=== PATIENT | male | born 1955 | race Caucasian/White ===

== ENCOUNTER 2018-11-11 14:01 | Observation (INO) | payer SELFPAY ==
[2018-11-11 15:49] LABS: Troponin I Less than 0.010 ng/mL (< 0.028)
[2018-11-11] MEDS ORDERED: Acetaminophen 325 MG TAB PO PRN (16:52)
[2018-11-11] MEDS ORDERED: Dextrose 50% Abboject 50 ML SYRINGE SLOW IVP PRN (17:18)
[2018-11-11] MEDS ORDERED: HumaLOG 300 UNITS/3 ML VIAL SC PRN ×2 (17:18→20:36)
[2018-11-11] MEDS ORDERED: Dextrose 5% in Water 1,000 ML IV PRN (17:18)
[2018-11-11 18:17] VITALS: BMI 25.6
[2018-11-11 19:38] LABS: Troponin I Less than 0.010 ng/mL (< 0.028)
[2018-11-11] MEDS ORDERED: Melatonin 3 MG TAB PO PRN (20:36)
[2018-11-11] MEDS ORDERED: Atorvastatin Calcium 10 MG TAB PO SCH (21:00)
[2018-11-11] MEDS ORDERED: Gabapentin 300 MG CAP PO SCH (21:00)
[2018-11-11] MEDS: metFORMIN 500 MG TAB PO SCH (21:31)
[2018-11-11] MEDS: Metoprolol Tartrate 25 MG TAB PO SCH (21:32)
[2018-11-11 21:47] LABS: Troponin I Less than 0.010 ng/mL (< 0.028)
[2018-11-11] MEDS ORDERED: Lisinopril/Hydrochlorothiazide 10 mg/12.5 mg Tablet PO SCH (22:45)
--- NOTE | 2018-11-12 00:42 | HP ---
CHIEF COMPLAINT: Near syncope. HISTORY OF PRESENT ILLNESS: This patient is a 63-year-old male who initially presented to the [facility]. The patient reports that couple days ago, he was working on his car and his washing machine broke, so he tried to fix that and while he was walking toward his well, he became lightheaded. He says he already fell to the ground. He says he rolled around a couple of times and was able to get back up. His says he was confused and did not know where he was. The patient reports that he never actually lost consciousness. He became very diaphoretic with this event, but he absolutely denies any chest pain or shortness of breath. He subsequently had his check his blood sugar and it was in the 160s. He reports since that time he has had a little bit of lightheadedness and mild headache, tilt of a little bit. Currently the patient denies any pain and no significant symptoms. The patient reports that functionally he is very active. 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 REVIEW OF SYSTEMS: All other systems reviewed and were negative. The patient does report history of a left inguinal hernia, but asymptomatic. PAST MEDICAL HISTORY: The patient has a history of colon cancer with resection. He states that he had an 8 pounds tumor removed from what sounds like the distal colon. He subsequently developed the inguinal hernia and was told he should have it addressed at some point, but never has and it has just gotten bigger. He has diabetes mellitus, hypertension, hyperlipidemia. He does follow with Dr. Ramirez and sees him every 3 months. PAST SURGICAL HISTORY: Colon resection for colon cancer. FAMILY HISTORY: Father at 88 in his sleep. He thinks he may have had some heart problems, but not until older age and does not believe he actually had a heart attack. Mother at 90. He has a brother who is morbidly obese, but has no cardiac issues. SOCIAL HISTORY: The patient smokes 10-15 cigarettes per day, started in the 90s. He says he used to drink a lot of beer 15-20 years ago, now he only drinks 1-2 per day. He denies drugs. He is , but common-law. He is full code and his would be his surrogate decision maker. ALLERGIES: NONE. CURRENT MEDICATIONS: 1. Metformin 1000 mg b.i.d. 2. Gabapentin 300 mg two p.o. daily. 3. Jardiance 10 mg daily. 4. Lipitor 10 mg daily. 5. Aspirin 81 mg daily. 6. NovoLog FlexPen 10 units subcu t.i.d. 7. Lisinopril/HCTZ 20/12.5 one p.o. b.i.d. 8. Metoprolol 25 mg b.i.d. PHYSICAL EXAMINATION: VITAL SIGNS: Blood pressure 160/72, pulse 59, respirations 22, O2 saturation 96 % on room air. GENERAL APPEARANCE: Age-appropriate male, in no distress. He is awake, alert, oriented, pleasant, and cooperative. HEENT: PERRL, no OP lesions. He has poor dentition with most of his teeth essentially worn down to flat brown nubs. NECK: Supple and symmetric. HEART: Regular rate and rhythm without murmurs. LUNGS: Clear to auscultation bilaterally with good chest wall expansion and air exchange. ABDOMEN: Soft, nontender, and nondistended. Positive bowel sounds. No masses. No organomegaly. Large left direct hernia without pain or incarceration. EXTREMITIES: No cyanosis, clubbing, or edema. LABORATORY DATA: White count 8.4, hemoglobin 17.4, platelets are 199. INR 1.0. Sodium 138, potassium 4.2, chloride 102, CO2 22, BUN 23, creatinine 0.83, glucose 132, calcium 10.0, AST 15, ALT 14. CK is 56, troponin is less than 0.01. Albumin 4.5. TSH 1.28. IMAGIN. Chest x-ray is clear. 2. Head CT, normal. 3. EKG rather shows some anterior early precordial lead ST-segment abnormality consistent with possible Wellens waves. HOSPITAL COURSE: The patient received aspirin at the outlying facility prior to transfer here. IMPRESSION AND PLAN: 1. Near syncopal episode. The patient denies actual loss of consciousness, He has multiple risk factors for atherosclerosis including hypertension, diabetes, hyperlipidemia, and smoking. We will keep him on telemetry. Continue to check serial troponins and obtain a cardiology consult. We will get an echocardiogram and also carotid Dopplers. The patient probably needs investigation of his coronary vasculature. Unclear, if he should go to stress test or given the EKG abnormalities and risk factor straight to heart catheterization, although he denies any true chest pain per se. We will consult Cardiology for assistance in that decision making process. 2. Diabetes mellitus. We will continue with his metformin. We will not be able to provide the Jardiance here, but we will continue with Accu-Cheks and sliding scale insulin otherwise. 3. Hyperlipidemia. Continue Lipitor. 4. Hypertension. Continue with the lisinopril/HCTZ and the metoprolol. 5. Left inguinal hernia. This is chronic and not a pressing issue. May need to be addressed, but only after the cardiac status is determined. 6. Abnormal EKG. As above. Job ID: [id number] MTDD
--- NOTE | 2018-11-12 07:40 | ULT ---
US Carotid Doppler STANDARD History: [Syncope] Comparison: None. Findings: Real-time grayscale, color, and spectral analysis of the extracranial carotid and vertebral arteries was performed. Moderate atherosclerotic plaque in both carotid bulbs. Antegrade flow both vertebral arteries. No jethro vated peak systolic velocities within the internal carotid arteries. Impression: No hemodynamically significant stenosis.
[2018-11-12 08:35] VITALS: BP 156/79; TEMP 98
[2018-11-12] MEDS ORDERED: Gabapentin 300 MG CAP PO SCH (09:00)
[2018-11-12] MEDS ORDERED: Aspirin 81 mg Enteric Coated Tablet PO SCH (09:00)
[2018-11-12] MEDS ORDERED: Lisinopril/Hydrochlorothiazide 20 mg/12.5 mg Tablet PO SCH (09:00)
[2018-11-12] MEDS: metFORMIN 500 MG TAB PO SCH (09:19)
[2018-11-12] MEDS: Metoprolol Tartrate 25 MG TAB PO SCH (09:20)
--- NOTE | 2018-11-12 13:42 | DIS ---
DATE OF ADMISSION: 11/11/2018 DATE OF DISCHARGE: 11/12/2018 DISCHARGE DIAGNOSES: 1. Near syncopal episode. 2. Abnormal EKG with Wellens waves. 3. Diabetes mellitus. 4. Hypertension. 5. Hyperlipidemia. 6. Tobacco abuse. 7. Left inguinal hernia. 8. History of colon cancer. HISTORY OF PRESENT ILLNESS: This patient is a 63-year-old male with history of chronic diabetes, hypertension, hyperlipidemia, and tobacco abuse, who had an episode of near syncope couple of days prior to his admission to the hospital. He reported that he never lost consciousness, but simply he was walking, became lightheaded, went to the ground, rolled around couple of times and was able to get back up. He became diaphoretic and a little confused, but then fully recovered. His blood sugar at that time was normal. He reported that he continued to feel a little sore and lightheaded subsequent and ultimately acquiesced to coming to the Emergency Department. He was originally seen in the Emergency Department in [place]. There, his workup primarily revealed an abnormality on his EKG consistent with Wellens waves primarily noticed in the V1, II, and III. He was transferred to this facility, where repeat confirmed similar findings. The patient completely denied any chest pain or shortness of breath. In fact, he remained quite physically active and at no point, does he experience chest pain or shortness of breath. HOSPITAL COURSE: The patient was placed in observation on telemetry. He had no evidence of arrhythmia. He had negative troponins. His blood sugars remain 168 to 227. The patient had carotid Dopplers, echocardiogram, and Cardiology consult ordered. Carotid Dopplers were obtained and showed no evidence of occlusive disease. The patient; however, decided that he wanted to leave. He had full explanation regarding the concern for the EKG findings. The possibility that he could have proximal coronary artery disease and could suffer a massive heart attack including sudden . He fully understands these things, but believes the fact that he stays active and has no symptoms and medicates against him having any problems. I explained thoroughly that those things do not negate the risk and he needs to have a heart catheterization in order to fully evaluate his coronary anatomy. The patient understands by leaving a risk of a heart attack or . His encouraged him to consider staying, but at this time, the patient wishes to leave against medical advice. Exam: VSS Heart RRR, no MGR Lungs CTAB Abd: Soft, NT, ND, +BS Ext: No CCE. FOLLOWUP: He is encouraged to follow up with his primary care physician or to follow up with Cardiology to consider having outpatient heart catheterization. He indicates that he might consider that at some time in the future. DISPOSITION: The patient is discharged against medical advice. His prognosis is still a bit guarded given his clinical scenario. He will resume his usual home medications and again encouraged to follow up with his PCP soon. He has appointment in 2 weeks. I encouraged him to go sooner. He will continue his diabetic heart healthy diet and his activity is up to him. Job ID: [id number] [facility]
== END 2018-11-12 10:30 | disposition left against medical advice (07) ==
LOC: ERS 14:01 → 2SW 15:50
PROVIDERS: ADMIT Internal Medicine; ATTEND Internal Medicine
DX: R55 Syncope and collapse (principal); K40.90 Unilateral inguinal hernia, without obstruction or gangrene, not specified as recurrent; E11.9 Type 2 diabetes mellitus without complications; I10 Essential (primary) hypertension; E78.5 Hyperlipidemia, unspecified; F17.210 Nicotine dependence, cigarettes, uncomplicated; Z79.4 Long term (current) use of insulin; Z79.899 Other long term (current) drug therapy; Z85.038 Personal history of other malignant neoplasm of large intestine; Z90.49 Acquired absence of other specified parts of digestive tract
CPT/HCPCS: 36415; 36416; 93005; 93306; 93880; G0378

== ENCOUNTER 2020-09-22 12:45 | Inpatient (IN) | payer MEDICARE ==
[2020-10-06 16:10] LABS: Hemoglobin 16.5 g/dL (13.5-17.5); Mean Corpuscular HGB CONC 34.4 g/dL (32.0-36.0); Mean Corpuscular Hemoglobin 27.4 pg (27.0-33.0); Mean Corpuscular Volume 79.6 fl (81.2-95.1); Mean Platelet Volume 9.9 fl (7.4-10.4); Platelet Count 157 10x3/uL (150-450); RBC Distribution Width 13.6 % (11.5-14.5); Red Blood Cell (RBC) Count 6.03 10x6/uL (4.32-5.72); White Blood Cell (WBC) Count 7.1 10x3/uL (3.5-10.5)
[2020-10-06 16:29] LABS: Anion Gap 14 mmol/L (10-20); BUN (Urea Nitrogen) 18 mg/dL (8.4-25.7); Calc. Creatinine Clearance 0 mL/min (70-130); Calcium 9.6 mg/dL (7.8-10.44); Carbon Dioxide 29 mmol/L (23-31); Chloride 98 mmol/L (98-107); Glucose 404 mg/dL (80-115); Potassium 4.5 mmol/L (3.5-5.1); Sodium 136 mmol/L (136-145)
[2020-10-07 05:52] LABS: SARS-CoV-2 PCR by NAA Not Detected (NotDetected)
[2020-10-09] MEDS ORDERED: Fentanyl 100 MCG/2 ML VIAL ONE (06:31)
[2020-10-09] MEDS ORDERED: Midazolam HCl 2 mg/2 ml Vial ONE (06:31)
[2020-10-09] MEDS ORDERED: Midazolam HCl 5 mg/5 ml Vial ONE (06:32)
[2020-10-09] MEDS ORDERED: Vecuronium 10 MG VIAL ONE ×3 (06:32→07:39)
[2020-10-09] MEDS ORDERED: Albumin 5% 500 ML ONE (06:32)
[2020-10-09] MEDS ORDERED: Dexmedetomidine 200 MCG/2 ML VIAL ONE (06:32)
[2020-10-09] MEDS ORDERED: Milrinone 10 MG/10 ML VIAL ONE (07:26)
[2020-10-09] MEDS ORDERED: Thrombin 5000 UNITS/5 ML VIAL ONE (07:39)
[2020-10-09] MEDS ORDERED: Mannitol 12.5 GM/50 ML ONE (07:39)
[2020-10-09] MEDS ORDERED: Aminocaproic Acid 5 GM/20 ML VIAL ONE (07:39)
[2020-10-09] MEDS ORDERED: Norepinephrine 4 MG/4 ML VIAL ONE (07:39)
[2020-10-09] MEDS ORDERED: Papaverine 60 MG/2 ML VIAL ONE (07:39)
[2020-10-09] MEDS ORDERED: Cardioplegic Soln 1,000 ML BAG ONE (07:39)
[2020-10-09] MEDS ORDERED: Magnesium Sulfate 1 GM/2 ML VIAL ONE (07:39)
[2020-10-09] MEDS ORDERED: Lidocaine 2% PF 100 mg/5 ml Syringe ONE (07:39)
[2020-10-09] MEDS ORDERED: Nitroglycerin 50 MG/250 ML BOT ONE (07:39)
[2020-10-09] MEDS ORDERED: Glycopyrrolate 0.2 MG/ML 5 ML SYRINGE ONE (07:39)
[2020-10-09] MEDS ORDERED: PROPOFOL 200 MG/20 ML VIAL ONE (07:39)
[2020-10-09] MEDS ORDERED: Calcium Chloride 1 GM/10 ML Abboject SYRINGE ONE (07:39)
[2020-10-09] MEDS ORDERED: Heparin 30,000 units/30 ml VIAL ONE (07:39)
[2020-10-09] MEDS ORDERED: Heparin 5,000 UNITS/ML VIAL ONE (07:39)
[2020-10-09] MEDS ORDERED: Sodium Bicarb 50 MEQ/50 ML Abboject 8.4% SYRINGE ONE (07:39)
[2020-10-09] MEDS ORDERED: Ketorolac Tromethamine 30 MG/ML VIAL ONE (07:39)
[2020-10-09] MEDS ORDERED: Potassium Chloride 60 MEQ/30 ML VIAL ONE (07:39)
[2020-10-09] MEDS ORDERED: Lidocaine 1% PF 5 ML VIAL ONE ×2 (07:39)
[2020-10-09] MEDS ORDERED: Dexamethasone 20 MG/5 ML VIAL ONE (07:39)
[2020-10-09] MEDS ORDERED: Ondansetron PF 4 MG/2 ML Vial ONE (07:39)
[2020-10-09] MEDS ORDERED: PHENYLEPHRINE-NS 100 MCG/ML 10 ML SYRINGE ONE ×2 (07:39→08:41)
[2020-10-09] MEDS ORDERED: Protamine Sulfate 250 MG/25 ML VIAL ONE (07:39)
[2020-10-09] MEDS ORDERED: Insulin Regular 300 UNITS/3 ML VIAL ONE (08:10)
[2020-10-09] MEDS ORDERED: HYDROcodone/Acetaminophen 5/325 mg Tablet PO PRN (11:49)
[2020-10-09] MEDS ORDERED: Post-Op Insulin Drip Protocol IVPB ONE (11:49)
[2020-10-09] MEDS ORDERED: Guaifenesin DM 100-10/5 ML UDCUP PO PRN (11:49)
[2020-10-09] MEDS ORDERED: Bisacodyl 5 MG TAB PO PRN (11:49)
[2020-10-09] MEDS ORDERED: niCARdipine 25 MG in Sodium Chloride 0.9% 250 ML 250 ML IVPB PRN (11:49)
[2020-10-09] MEDS ORDERED: Acetaminophen 325 MG TAB PO PRN (11:49)
[2020-10-09] MEDS ORDERED: Hetastarch 6% 500 ML 500 ML IVPB PRN (11:49)
[2020-10-09] MEDS ORDERED: Nitroglycerin 50 MG/250 ML BOT 250 ML IVPB PRN (11:49)
[2020-10-09] MEDS ORDERED: Bisacodyl 10 MG SUPP PR PRN (11:49)
[2020-10-09] MEDS ORDERED: Fentanyl 100 MCG/2 ML VIAL SLOW IVP PRN (11:49)
[2020-10-09] MEDS ORDERED: Norepinephrine 8 MG/0.9% NS 250 ML IVPB PRN (11:49)
[2020-10-09] MEDS ORDERED: Magnesium 2 GM/50 ML 2 GM in Premix Bag 1 BAG IVPB SCH (11:49)
[2020-10-09] MEDS ORDERED: Mag-Al 1200 mg/1200 mg/30 ML UDCUP PO PRN (11:49)
[2020-10-09] MEDS ORDERED: Morphine 2 MG/ML VIAL SLOW IVP PRN (11:49)
[2020-10-09] MEDS ORDERED: Ondansetron PF 4 MG/2 ML Vial IVP PRN (11:49)
[2020-10-09] MEDS ORDERED: Promethazine HCl 25 MG/ML VIAL IM PRN (11:49)
[2020-10-09] MEDS ORDERED: HUMULIN R 100 UNITS in Sodium Chloride 0.9% 100 ML IVPB SCH (12:00)
[2020-10-09] MEDS ORDERED: Dextrose 50% Abboject 50 ML SYRINGE SLOW IVP PRN (12:00)
[2020-10-09] MEDS ORDERED: Dextrose 5% in Water 1,000 ML IV PRN (12:00)
[2020-10-09 12:10] LABS: Mean Corpuscular Volume 82.3 fL (78.0-98.0); Platelet Count 104 thou/uL (130-400); Red Blood Cell (RBC) Count 5.34 mill/uL (4.70-6.10); White Blood Cell (WBC) Count 11.8 thou/uL (4.8-10.8)
[2020-10-09 12:11] LABS: #Eosinphils 0.2 thou/uL (0.0-0.7); #Lymphocytes 1.1 thou/uL (1.20-3.40); #Monocytes 0.7 thou/uL (0.11-0.59); #Neutrophils 9.9 thou/uL (1.40-6.50); %Basophils 0.2 % (0.0-1.0); %Eosinophils 1.5 % (0.0-10.0); %Monocytes 5.5 % (0.0-10.0); %Neutrophils 83.7 % (42.0-75.0)
[2020-10-09] MEDS: DOBUTamine 500 mg/250 ml 250 ML IVPB SCH (12:15)
[2020-10-09 12:17] LABS: INR-International Normal Ratio 1.2; PTT 27.9 sec (22.9-36.1); Prothrombin Time 15.1 sec (12.0-14.7)
[2020-10-09 12:27] LABS: Anion Gap 9 mmol/L (10-20); BUN (Urea Nitrogen) 17 mg/dL (8.4-25.7); Calc. Creatinine Clearance 122 mL/min (70-130); Calcium 8.3 mg/dL (7.8-10.44); Carbon Dioxide 25 mmol/L (23-31); Chloride 109 mmol/L (98-107); Glucose 170 mg/dL (80-115); Potassium 3.8 mmol/L (3.5-5.1)
[2020-10-09 12:30] LABS: Sodium 139 mmol/L (136-145)
[2020-10-09] MEDS: hydrALAZINE 20 MG/ML VIAL SLOW IVP PRN (12:34)
[2020-10-09] MEDS: Sodium Chloride 0.9% 1,000 ML IV SCH ×2 (12:35→22:18)
[2020-10-09] MEDS: CEFAZOLIN 2 GM in Premix Bag 1 BAG IVPB SCH ×2 (13:31→22:18)
[2020-10-09] MEDS: Fentanyl 100 MCG/2 ML VIAL SLOW IVP PRN ×2 (14:21→22:32)
[2020-10-09] MEDS: HYDROcodone/Acetaminophen 5/325 mg Tablet PO PRN ×2 (16:06→20:39)
[2020-10-09] MEDS: BEER 1 CAN PO SCH (17:04)
[2020-10-09 17:59] LABS: Hemoglobin 15.1 g/dL (14.0-18.0)
[2020-10-09 18:14] LABS: Potassium 3.4 mmol/L (3.5-5.1)
[2020-10-09] MEDS: Potassium Chloride 20 MEQ/100 ML PREMIX BAG IVPB PRN (18:27)
[2020-10-09] MEDS: Famotidine/PF 20 mg/2ml Vial SLOW IVP SCH (20:39)
[2020-10-10] MEDS: Fentanyl 100 MCG/2 ML VIAL SLOW IVP PRN ×3 (00:41→08:49)
[2020-10-10] MEDS: HYDROcodone/Acetaminophen 5/325 mg Tablet PO PRN ×4 (01:29→21:13)
[2020-10-10 04:02] LABS: #Lymphocytes 0.5 thou/uL (1.20-3.40); #Monocytes 1.3 thou/uL (0.11-0.59); #Neutrophils 10.7 thou/uL (1.40-6.50); %Lymphocytes 3.7 % (21.0-51.0); %Monocytes 10.7 % (0.0-10.0); %Neutrophils 85.5 % (42.0-75.0); Hemoglobin 13.8 g/dL (14.0-18.0); Mean Corpuscular HGB CONC 34.1 g/dL (32.0-36.0); Mean Corpuscular Hemoglobin 28.5 pg (27.0-31.0); Mean Corpuscular Volume 83.6 fL (78.0-98.0); Mean Platelet Volume 7.9 fL (7.4-10.4); Platelet Count 110 thou/uL (130-400); Red Blood Cell (RBC) Count 4.84 mill/uL (4.70-6.10); White Blood Cell (WBC) Count 12.5 thou/uL (4.8-10.8)
[2020-10-10 04:21] LABS: Anion Gap 13 mmol/L (10-20); BUN (Urea Nitrogen) 12 mg/dL (8.4-25.7); Calc. Creatinine Clearance 136 mL/min (70-130); Calcium 7.9 mg/dL (7.8-10.44); Carbon Dioxide 20 mmol/L (23-31); Chloride 108 mmol/L (98-107); Glucose 138 mg/dL (80-115); Potassium 3.8 mmol/L (3.5-5.1); Sodium 137 mmol/L (136-145)
[2020-10-10] MEDS: Potassium Chloride 20 MEQ/100 ML PREMIX BAG IVPB PRN (05:47)
[2020-10-10] MEDS: CEFAZOLIN 2 GM in Premix Bag 1 BAG IVPB SCH (05:48)
[2020-10-10] MEDS: Polyethylene Glycol 3350 17 GM Packet PO SCH (08:49)
[2020-10-10] MEDS: Famotidine/PF 20 mg/2ml Vial SLOW IVP SCH ×2 (08:50→21:13)
[2020-10-10] MEDS: Aspirin 325 MG TAB PO SCH (08:50)
[2020-10-10] MEDS: BEER 1 CAN PO SCH ×3 (08:50→17:52)
[2020-10-10] MEDS: Insulin Regular 300 UNITS/3 ML VIAL SC PRN ×3 (11:58→21:13)
[2020-10-10] MEDS: Ketorolac Tromethamine 30 MG/ML VIAL IVP SCH ×2 (11:59→17:03)
[2020-10-10] MEDS: DOBUTamine 500 mg/250 ml 250 ML IVPB SCH (17:04)
[2020-10-11] MEDS: Ketorolac Tromethamine 30 MG/ML VIAL IVP SCH ×4 (00:03→17:01)
[2020-10-11] MEDS: Insulin Regular 300 UNITS/3 ML VIAL SC PRN ×6 (00:27→20:15)
[2020-10-11 05:14] LABS: Anion Gap 10 mmol/L (10-20); BUN (Urea Nitrogen) 12 mg/dL (8.4-25.7); Calc. Creatinine Clearance 148 mL/min (70-130); Calcium 7.7 mg/dL (7.8-10.44); Carbon Dioxide 25 mmol/L (23-31); Chloride 103 mmol/L (98-107); Glucose 184 mg/dL (80-115); Potassium 3.9 mmol/L (3.5-5.1); Sodium 134 mmol/L (136-145)
[2020-10-11 05:17] LABS: #Lymphocytes 0.9 thou/uL (1.20-3.40); #Monocytes 1.1 thou/uL (0.11-0.59); #Neutrophils 8.5 thou/uL (1.40-6.50); %Basophils 0.2 % (0.0-1.0); %Eosinophils 0.4 % (0.0-10.0); %Lymphocytes 8.5 % (21.0-51.0); %Monocytes 10.3 % (0.0-10.0); %Neutrophils 80.5 % (42.0-75.0); Mean Corpuscular Volume 84.3 fL (78.0-98.0); Mean Platelet Volume 8.1 fL (7.4-10.4); Platelet Count 118 thou/uL (130-400); RBC Distribution Width 13.1 % (11.5-14.5); Red Blood Cell (RBC) Count 4.83 mill/uL (4.70-6.10); White Blood Cell (WBC) Count 10.6 thou/uL (4.8-10.8)
[2020-10-11] MEDS: Potassium Chloride 20 MEQ/100 ML PREMIX BAG IVPB PRN (06:00)
[2020-10-11] MEDS: HYDROcodone/Acetaminophen 5/325 mg Tablet PO PRN (06:09)
[2020-10-11] MEDS: BEER 1 CAN PO SCH ×3 (09:17→17:05)
[2020-10-11] MEDS: Polyethylene Glycol 3350 17 GM Packet PO SCH (09:18)
[2020-10-11] MEDS: Aspirin 325 MG TAB PO SCH (09:18)
[2020-10-11] MEDS: Famotidine/PF 20 mg/2ml Vial SLOW IVP SCH ×2 (09:18→20:11)
[2020-10-11] MEDS ORDERED: Carvedilol 3.125 MG TAB PO SCH (09:30)
[2020-10-11] MEDS: Carvedilol 3.125 MG TAB PO SCH ×2 (09:39→17:02)
[2020-10-11] MEDS: Lisinopril 5 MG TAB PO SCH ×2 (09:39→20:11)
[2020-10-12] MEDS: hydrALAZINE 20 MG/ML VIAL SLOW IVP PRN (00:12)
[2020-10-12] MEDS: Insulin Regular 300 UNITS/3 ML VIAL SC PRN ×3 (00:25→12:32)
[2020-10-12 04:08] LABS: #Lymphocytes 0.7 thou/uL (1.20-3.40); #Monocytes 1.1 thou/uL (0.11-0.59); #Neutrophils 8.7 thou/uL (1.40-6.50); %Basophils 0.5 % (0.0-1.0); %Eosinophils 0.4 % (0.0-10.0); %Lymphocytes 6.8 % (21.0-51.0); %Monocytes 10.3 % (0.0-10.0); Hemoglobin 13.6 g/dL (14.0-18.0); Mean Corpuscular HGB CONC 32.9 g/dL (32.0-36.0); Mean Corpuscular Hemoglobin 27.5 pg (27.0-31.0); Mean Corpuscular Volume 83.5 fL (78.0-98.0); Mean Platelet Volume 7.6 fL (7.4-10.4); Platelet Count 128 thou/uL (130-400); RBC Distribution Width 12.9 % (11.5-14.5); Red Blood Cell (RBC) Count 4.94 mill/uL (4.70-6.10); White Blood Cell (WBC) Count 10.6 thou/uL (4.8-10.8)
[2020-10-12 05:00] LABS: Anion Gap 10 mmol/L (10-20); BUN (Urea Nitrogen) 11 mg/dL (8.4-25.7); Calc. Creatinine Clearance 154 mL/min (70-130); Calcium 8.2 mg/dL (7.8-10.44); Carbon Dioxide 26 mmol/L (23-31); Chloride 101 mmol/L (98-107); Glucose 170 mg/dL (80-115); Potassium 3.7 mmol/L (3.5-5.1); Sodium 133 mmol/L (136-145)
[2020-10-12] MEDS ORDERED: Lorazepam 2 MG/ML VIAL ONE (05:10)
[2020-10-12] MEDS ORDERED: Lorazepam 2 MG/ML VIAL SLOW IVP SCH ×2 (05:15→08:30)
[2020-10-12] MEDS: Diazepam 5 MG TAB PO PRN ×3 (05:22→15:01)
[2020-10-12] MEDS ORDERED: Diazepam 5 MG TAB PO SCH (06:00)
[2020-10-12] MEDS ORDERED: Thiamine HCl 200 MG/2 ML VIAL IM SCH (06:00)
[2020-10-12] MEDS: BEER 1 CAN PO SCH ×3 (08:01→17:03)
[2020-10-12] MEDS ORDERED: Haloperidol Lactate 5 MG/ML VIAL IM PRN (08:25)
[2020-10-12] MEDS ORDERED: Haloperidol Lactate 5 MG/ML VIAL ONE (08:26)
[2020-10-12] MEDS: Carvedilol 3.125 MG TAB PO SCH ×2 (08:38→15:02)
[2020-10-12] MEDS: Aspirin 325 MG TAB PO SCH (08:55)
[2020-10-12] MEDS: Polyethylene Glycol 3350 17 GM Packet PO SCH (08:56)
[2020-10-12] MEDS: Lisinopril 5 MG TAB PO SCH ×2 (08:56→21:44)
[2020-10-12] MEDS: Folic Acid 1 MG TAB PO SCH (08:56)
[2020-10-12] MEDS: Multivitamin W/ Minerals 1 TAB PO SCH (08:56)
[2020-10-12] MEDS: Famotidine/PF 20 mg/2ml Vial SLOW IVP SCH ×2 (09:05→21:43)
[2020-10-13] MEDS ORDERED: Diazepam 5 MG TAB PO PRN (04:00)
[2020-10-13 04:21] LABS: #Basophils 0.1 thou/uL (0.0-0.2); #Eosinphils 0.1 thou/uL (0.0-0.7); #Lymphocytes 0.9 thou/uL (1.20-3.40); #Monocytes 0.9 thou/uL (0.11-0.59); #Neutrophils 4.8 thou/uL (1.40-6.50); %Basophils 0.8 % (0.0-1.0); %Eosinophils 2.2 % (0.0-10.0); %Lymphocytes 12.8 % (21.0-51.0); %Monocytes 13.1 % (0.0-10.0); %Neutrophils 71.1 % (42.0-75.0); Hemoglobin 12.5 g/dL (14.0-18.0); Mean Corpuscular Hemoglobin 27.7 pg (27.0-31.0); Mean Corpuscular Volume 83.9 fL (78.0-98.0); Mean Platelet Volume 7.9 fL (7.4-10.4); Platelet Count 116 thou/uL (130-400); RBC Distribution Width 12.7 % (11.5-14.5); Red Blood Cell (RBC) Count 4.51 mill/uL (4.70-6.10); White Blood Cell (WBC) Count 6.7 thou/uL (4.8-10.8)
[2020-10-13 04:24] LABS: Anion Gap 14 mmol/L (10-20); BUN (Urea Nitrogen) 13 mg/dL (8.4-25.7); Calc. Creatinine Clearance 137 mL/min (70-130); Calcium 8.5 mg/dL (7.8-10.44); Carbon Dioxide 22 mmol/L (23-31); Chloride 104 mmol/L (98-107); Glucose 181 mg/dL (80-115); Potassium 4.1 mmol/L (3.5-5.1); Sodium 136 mmol/L (136-145)
[2020-10-13] MEDS: Spironolactone 25 MG TAB PO SCH (07:31)
[2020-10-13] MEDS: Furosemide 40 MG TAB PO SCH (07:31)
[2020-10-13] MEDS: Carvedilol 3.125 MG TAB PO SCH ×2 (07:32→17:19)
[2020-10-13] MEDS: Polyethylene Glycol 3350 17 GM Packet PO SCH (08:13)
[2020-10-13] MEDS: Famotidine/PF 20 mg/2ml Vial SLOW IVP SCH (08:15)
[2020-10-13] MEDS: Lisinopril 5 MG TAB PO SCH (08:16)
[2020-10-13] MEDS: Aspirin 325 MG TAB PO SCH (08:16)
[2020-10-13] MEDS: Magnesium Oxide 400 MG TAB PO SCH (08:16)
[2020-10-13] MEDS: Folic Acid 1 MG TAB PO SCH (08:16)
[2020-10-13] MEDS: Multivitamin W/ Minerals 1 TAB PO SCH (08:16)
[2020-10-13] MEDS: Thiamine 100 MG TAB PO SCH (08:16)
[2020-10-13] MEDS: Insulin Regular 300 UNITS/3 ML VIAL SC PRN ×3 (08:57→17:17)
[2020-10-13] MEDS: BEER 1 CAN PO SCH ×3 (10:54→18:03)
[2020-10-13 12:59] LABS: Actual Bicarbonate (HCO3a) 22.1 mEq/L (22-28); Analyzer IN Cardio OR; Base Excess (BEa) -3.4 mEq/L (-2.0 to +3.0); CO2 Tension 41.8 mmHg (35.0-45.0); Calcium, Ionized (arterial) 1.19 mmol/L (1.12-1.30); Carboxyhemoglobin (COHb) 2.2 gm% (0.0-3.0); Hemoglobin (Hb) 15.2 g/dL (14.0-18.0); O2 Tension (PaO2), arterial 289.1 mmHg (> 80.0); Potassium - ABG Lab 4.42 mmol/L (3.70-5.30); pH, Arterial 7.34 (7.35-7.45)
[2020-10-13 13:00] LABS: Actual Bicarbonate (HCO3a) 24.4 mEq/L (22-28); Analyzer IN Cardio OR; Base Excess (BEa) -0.9 mEq/L (-2.0 to +3.0); CO2 Tension 42.7 mmHg (35.0-45.0); Calcium, Ionized (arterial) 1.06 mmol/L (1.12-1.30); Carboxyhemoglobin (COHb) 1.3 gm% (0.0-3.0); Hemoglobin (Hb) 12.5 g/dL (14.0-18.0); O2 Tension (PaO2), arterial 388.9 mmHg (> 80.0); Potassium - ABG Lab 4.81 mmol/L (3.70-5.30); pH, Arterial 7.37 (7.35-7.45)
[2020-10-13 13:00] LABS: Actual Bicarbonate (HCO3a) 21.6 mEq/L (22-28); Analyzer IN Cardio OR; Base Excess (BEa) -4.6 mEq/L (-2.0 to +3.0); CO2 Tension 43.7 mmHg (35.0-45.0); Calcium, Ionized (arterial) 1.18 mmol/L (1.12-1.30); Carboxyhemoglobin (COHb) 1.3 gm% (0.0-3.0); Hemoglobin (Hb) 15.2 g/dL (14.0-18.0); O2 Tension (PaO2), arterial 375.8 mmHg (> 80.0); Potassium - ABG Lab 4.04 mmol/L (3.70-5.30); pH, Arterial 7.31 (7.35-7.45)
[2020-10-13 13:01] LABS: Actual Bicarbonate (HCO3a) 22.4 mEq/L (22-28); Analyzer IN Cardio OR; Base Excess (BEa) -2.5 mEq/L (-2.0 to +3.0); CO2 Tension 39.4 mmHg (35.0-45.0); Calcium, Ionized (arterial) 1.44 mmol/L (1.12-1.30); Carboxyhemoglobin (COHb) 0.8 gm% (0.0-3.0); Hemoglobin (Hb) 11.9 g/dL (14.0-18.0); O2 Tension (PaO2), arterial 390.7 mmHg (> 80.0); Potassium - ABG Lab 4.18 mmol/L (3.70-5.30); pH, Arterial 7.37 (7.35-7.45)
[2020-10-13 13:01] LABS: Actual Bicarbonate (HCO3a) 22.4 mEq/L (22-28); Analyzer IN Cardio OR; Base Excess (BEa) -3.3 mEq/L (-2.0 to +3.0); CO2 Tension 42.6 mmHg (35.0-45.0); Calcium, Ionized (arterial) 1.22 mmol/L (1.12-1.30); Carboxyhemoglobin (COHb) 1.5 gm% (0.0-3.0); Hemoglobin (Hb) 14.3 g/dL (14.0-18.0); O2 Tension (PaO2), arterial 483.4 mmHg (> 80.0); pH, Arterial 7.34 (7.35-7.45)
[2020-10-13 13:01] LABS: CO2 Tension 41.2 mmHg (35.0-45.0); Calcium, Ionized (arterial) 1.08 mmol/L (1.12-1.30); Carboxyhemoglobin (COHb) 1.1 gm% (0.0-3.0); Hemoglobin (Hb) 12.5 g/dL (14.0-18.0); O2 Tension (PaO2), arterial 423.8 mmHg (> 80.0); Potassium - ABG Lab 4.32 mmol/L (3.70-5.30); pH, Arterial 7.38 (7.35-7.45)
[2020-10-13 13:02] LABS: Puncture Site Arterial Line
[2020-10-13 13:02] LABS: Puncture Site Arterial Line
[2020-10-13 13:05] LABS: Puncture Site Arterial Line
[2020-10-13 13:06] LABS: Analyzer IN Cardio OR; Puncture Site Arterial Line
[2020-10-13 13:07] LABS: Puncture Site Arterial Line
[2020-10-13 13:07] LABS: Puncture Site Arterial Line
[2020-10-13 13:18] VITALS: BMI 26.7
[2020-10-13] MEDS ORDERED: Nitroglycerin 0.4 MG TAB (25 Tab Bottle) SL PRN (16:56)
[2020-10-13] MEDS ORDERED: Dextrose 50% Abboject 50 ML SYRINGE SLOW IVP PRN (17:00)
[2020-10-13] MEDS ORDERED: Dextrose 5% in Water 1,000 ML IV PRN (17:00)
[2020-10-14] MEDS ORDERED: Lisinopril 5 MG TAB PO SCH (05:57)
[2020-10-14] MEDS: metFORMIN 500 MG TAB PO SCH ×2 (07:36→17:17)
[2020-10-14] MEDS: Multivitamin W/ Minerals 1 TAB PO SCH (07:36)
[2020-10-14] MEDS: Magnesium Oxide 400 MG TAB PO SCH (07:36)
[2020-10-14] MEDS: Aspirin 325 MG TAB PO SCH (07:37)
[2020-10-14] MEDS: Carvedilol 3.125 MG TAB PO SCH ×2 (07:38→17:17)
[2020-10-14] MEDS: Spironolactone 25 MG TAB PO SCH (07:38)
[2020-10-14] MEDS: Folic Acid 1 MG TAB PO SCH (07:38)
[2020-10-14] MEDS: Furosemide 40 MG TAB PO SCH (07:38)
[2020-10-14] MEDS: Thiamine 100 MG TAB PO SCH (07:43)
[2020-10-14] MEDS: Insulin Regular 300 UNITS/3 ML VIAL SC PRN ×4 (07:45→21:00)
[2020-10-14] MEDS: Lisinopril 5 MG TAB PO SCH (08:26)
[2020-10-14] MEDS: BEER 1 CAN PO SCH ×3 (08:27→17:17)
[2020-10-14] MEDS: Polyethylene Glycol 3350 17 GM Packet PO SCH (09:14)
[2020-10-14] MEDS ORDERED: Lantus 1000 UNITS/10 ML VIAL SC SCH (21:00)
[2020-10-15] MEDS: Insulin Regular 300 UNITS/3 ML VIAL SC PRN (06:12)
[2020-10-15] MEDS: metFORMIN 500 MG TAB PO SCH (09:32)
[2020-10-15] MEDS: Folic Acid 1 MG TAB PO SCH (09:32)
[2020-10-15] MEDS: Multivitamin W/ Minerals 1 TAB PO SCH (09:32)
[2020-10-15] MEDS: Thiamine 100 MG TAB PO SCH (09:32)
[2020-10-15] MEDS: Magnesium Oxide 400 MG TAB PO SCH (09:32)
[2020-10-15] MEDS: Spironolactone 25 MG TAB PO SCH (09:32)
[2020-10-15] MEDS: Carvedilol 3.125 MG TAB PO SCH (09:32)
[2020-10-15] MEDS: Aspirin 325 MG TAB PO SCH (09:32)
[2020-10-15] MEDS: BEER 1 CAN PO SCH ×2 (09:33→12:33)
[2020-10-15 11:58] VITALS: BP 111/69; TEMP 97.4
== END 2020-10-15 12:05 | disposition home or self-care (01) | DRG 236 ==
LOC: EDSTATUS 09-25 12:45 → SURG A 10-09 05:57 → CCU 10-09 12:00 → 2NO 10-14 17:41
PROVIDERS: ADMIT Thoracic Surgery (Cardiothoracic Vascular Surgery); ATTEND Thoracic Surgery (Cardiothoracic Vascular Surgery)
PROC: 02100Z9 Bypass Coronary Artery, One Artery from Left Internal Mammary, Open Approach (ICD-10-PCS; principal; 2020-10-09)
PROC: 021209W Bypass Coronary Artery, Three Arteries from Aorta with Autologous Venous Tissue, Open Approach (ICD-10-PCS; 2020-10-09)
PROC: 06BQ4ZZ Excision of Left Saphenous Vein, Percutaneous Endoscopic Approach (ICD-10-PCS; 2020-10-09)
PROC: 5A1221Z Performance of Cardiac Output, Continuous (ICD-10-PCS; 2020-10-09)
DX: I25.10 Atherosclerotic heart disease of native coronary artery without angina pectoris (principal); F10.239 Alcohol dependence with withdrawal, unspecified; I50.22 Chronic systolic (congestive) heart failure; I25.5 Ischemic cardiomyopathy; G47.33 Obstructive sleep apnea (adult) (pediatric); F13.90 Sedative, hypnotic, or anxiolytic use, unspecified, uncomplicated; Z20.822 Contact with and (suspected) exposure to COVID-19; E11.9 Type 2 diabetes mellitus without complications; E78.5 Hyperlipidemia, unspecified; Z79.899 Other long term (current) drug therapy; Z79.82 Long term (current) use of aspirin; Z79.84 Long term (current) use of oral hypoglycemic drugs; I25.2 Old myocardial infarction; Z98.890 Other specified postprocedural states; Z85.038 Personal history of other malignant neoplasm of large intestine; I11.0 Hypertensive heart disease with heart failure; Z91.14 Patient's other noncompliance with medication regimen
CPT/HCPCS: 36416; 36430; 71045; 80048; 82805; 85025; 85027; 85610; 85730; 86850; 86900; 86901; 87635; 93005; 93010; 93798; 94640; 97139; J0360; J0690; J1100; J1250; J1630; J1642; J1644; J1815; J1885; J2001; J2060; J2150; J2250; J2260; J2405; J2440; J2704; J2720; J3010; J3370; J3411; J3475; J3480; J3490; J7620; P9045; S0017; S0028; U0003; U0005

== ENCOUNTER 2020-09-22 13:46 | Outpatient (CLI) | payer MEDICARE ==
[2020-09-22 15:10] LABS: Anion Gap 17 mmol/L (10-20); BUN (Urea Nitrogen) 25 mg/dL (8.4-25.7); Calc. Creatinine Clearance 0 mL/min (70-130); Calcium 9.9 mg/dL (7.8-10.44); Carbon Dioxide 23 mmol/L (23-31); Chloride 98 mmol/L (98-107); Glucose 365 mg/dL (80-115); Potassium 4.6 mmol/L (3.5-5.1); Sodium 133 mmol/L (136-145)
[2020-09-22 15:16] LABS: Hemoglobin 16.9 g/dL (13.5-17.5); Mean Corpuscular HGB CONC 33.5 g/dL (32.0-36.0); Mean Corpuscular Hemoglobin 26.9 pg (27.0-33.0); Mean Corpuscular Volume 80.4 fl (81.2-95.1); Mean Platelet Volume 10.8 fl (7.4-10.4); Platelet Count 161 10x3/uL (150-450); RBC Distribution Width 13.1 % (11.5-14.5); Red Blood Cell (RBC) Count 6.28 10x6/uL (4.32-5.72)
[2020-09-23 04:20] LABS: SARS-CoV-2 PCR by NAA Not Detected (NotDetected)
== END 2020-09-22 13:47 | disposition home or self-care (01) ==
LOC: LABBT 13:46
PROVIDERS: ATTEND Thoracic Surgery (Cardiothoracic Vascular Surgery)
DX: Z01.812 Encounter for preprocedural laboratory examination (principal); Z20.822 Contact with and (suspected) exposure to COVID-19; I25.10 Atherosclerotic heart disease of native coronary artery without angina pectoris
CPT/HCPCS: 80048; 85027; 86850; 86900; 86901; 86920; U0003; U0005; 87635

== ENCOUNTER 2020-10-06 14:16 | Outpatient (CLI) | payer MEDICARE | END 2020-10-06 14:17 | disposition home or self-care (01) | LOC: LABBT 14:16 | PROVIDERS: ATTEND Thoracic Surgery (Cardiothoracic Vascular Surgery) | DX: Z53.9 Procedure and treatment not carried out, unspecified reason (principal) | CPT/HCPCS: 80048; 85027; 86850; 86900; 86901; 86920; U0003; U0005; 87635 ==

== ENCOUNTER 2020-11-01 02:00 | Inpatient (IN) | payer MEDICARE ==
[2020-11-01 02:46] LABS: Mean Corpuscular HGB CONC 33.1 g/dL (32.0-36.0); Mean Corpuscular Hemoglobin 27.1 pg (27.0-31.0); Mean Corpuscular Volume 81.9 fL (78.0-98.0); Mean Platelet Volume 7.3 fL (7.4-10.4); Platelet Count 212 thou/uL (130-400); RBC Distribution Width 13.2 % (11.5-14.5); Red Blood Cell (RBC) Count 4.79 mill/uL (4.70-6.10); White Blood Cell (WBC) Count 17.5 thou/uL (4.8-10.8)
[2020-11-01 03:06] LABS: ALT (SGPT) 10 U/L (8-55); AST (SGOT) 14 U/L (5-34); Albumin 3.5 g/dL (3.4-4.8); Alkaline Phosphatase 92 U/L (40-110); Anion Gap 13 mmol/L (10-20); BUN (Urea Nitrogen) 11 mg/dL (8.4-25.7); Bilirubin, Total 0.4 mg/dL (0.2-1.2); Calc. Creatinine Clearance 0 mL/min (70-130); Calcium 8.8 mg/dL (7.8-10.44); Carbon Dioxide 23 mmol/L (23-31); Chloride 103 mmol/L (98-107); Globulin 2.9 g/dL (2.4-3.5); Glucose 305 mg/dL (80-115); Potassium 4.2 mmol/L (3.5-5.1); Protein, Total 6.4 g/dL (5.8-8.1); Sodium 135 mmol/L (136-145)
[2020-11-01 03:20] LABS: Bilirubin Negative (Negative); Blood, Urine Negative (Negative); Clarity Clear (Clear); Glucose, Urine (Dipstick) Greater than 1000 mg/dL (Negative); Ketone, Urine Negative (Negative); Leukocyte Negative Leu/uL (Negative); Nitrite Negative (Negative); Protein, Urine (Dipstick) 10 mg/dL (Neg-Trace); Specific Gravity, Urine 1.037 (1.002-1.036); Urobilinogen Normal mg/dL (Less than 2)
[2020-11-01 03:20] LABS: Band 26 % (5-11); Eosinophils 2 % (0-10); Lymphocytes 3 % (21-51); MDiff Complete? YES; Monocytes 8 % (0-10); Neutrophil 61 % (42-75); Platelet Morphology Comment Appears Adequate; RBC Morphology Normal
[2020-11-01] MEDS ORDERED: Morphine 4 MG/ML VIAL ONE (04:07)
[2020-11-01] MEDS ORDERED: Ondansetron PF 4 MG/2 ML Vial ONE (04:08)
[2020-11-01] MEDS ORDERED: Cefepime 2 GM VIAL ONE (04:08)
[2020-11-01] MEDS ORDERED: Vancomycin 1 GM/200 ML BAG ONE (04:45)
[2020-11-01] MEDS ORDERED: Acetaminophen 325 MG TAB PO PRN ×2 (06:45→07:26)
[2020-11-01] MEDS ORDERED: Ondansetron ODT 4 MG TAB SL PRN (06:45)
[2020-11-01] MEDS ORDERED: Ondansetron PF 4 MG/2 ML Vial IVP PRN ×2 (06:45→07:26)
[2020-11-01] MEDS ORDERED: Ondansetron ODT 4 MG TAB PO PRN (07:26)
[2020-11-01] MEDS ORDERED: Senokot S 8.6-50 MG TAB PO PRN (07:26)
[2020-11-01] MEDS ORDERED: HumaLOG 300 UNITS/3 ML VIAL SC PRN (07:31)
[2020-11-01] MEDS ORDERED: Dextrose 50% Abboject 50 ML SYRINGE SLOW IVP PRN (07:31)
[2020-11-01] MEDS ORDERED: Dextrose 5% in Water 1,000 ML IV PRN (07:31)
[2020-11-01] MEDS ORDERED: Carvedilol 3.125 MG TAB PO SCH (08:00)
[2020-11-01] MEDS ORDERED: Sodium Chloride 0.9% 1,000 ML IV SCH (08:00)
[2020-11-01 08:09] VITALS: BMI 27.5
[2020-11-01] MEDS ORDERED: Famotidine 20 MG TAB PO SCH (09:00)
[2020-11-01] MEDS ORDERED: Insulin Glargine 10 UNITS in Pre-Filled Syringe 1 EACH SC SCH (09:00)
[2020-11-01] MEDS ORDERED: Vancomycin HCl 750 MG in Sodium Chloride 0.9% 250 ML 250 ML IVPB SCH (09:00)
[2020-11-01] MEDS ORDERED: Famotidine/PF 20 mg/2ml Vial SLOW IVP SCH (09:00)
[2020-11-01] MEDS: Enoxaparin Sodium 40 MG/0.4 ML SYRINGE SC SCH (09:38)
[2020-11-01] MEDS: Aspirin 81 mg Enteric Coated Tablet PO SCH (09:39)
[2020-11-01] MEDS: Carvedilol 6.25 MG TAB PO SCH ×2 (09:39→17:21)
[2020-11-01] MEDS: Lantus 1000 UNITS/10 ML VIAL SC SCH ×2 (09:41→20:58)
[2020-11-01] MEDS ORDERED: ALPRAZolam 0.25 MG TAB PO SCH ×3 (11:15→21:00)
[2020-11-01] MEDS ORDERED: Thiamine HCl 200 MG/2 ML VIAL IM SCH (11:15)
[2020-11-01] MEDS: BEER 1 CAN PO SCH ×2 (13:39→17:21)
[2020-11-01] MEDS: Cefepime 2 GM in Sodium Chloride 0.9% 100 ML IVPB SCH (17:20)
[2020-11-01] MEDS: HumaLOG 300 UNITS/3 ML VIAL SC PRN (17:21)
[2020-11-01] MEDS ORDERED: VANCOMYCIN 1.25 GM/250 ML BAG 1.25 GM in Premix Bag 1 BAG IVPB SCH (18:00)
[2020-11-01 19:05] LABS: Magnesium 1.8 mg/dL (1.6-2.6); Potassium 4.1 mmol/L (3.5-5.1)
[2020-11-01] MEDS ORDERED: Magnesium 2 GM/50 ML 2 GM in Premix Bag 1 BAG IVPB SCH (19:15)
[2020-11-01] MEDS: VANCOMYCIN 1.25 GM/250 ML BAG 1.25 GM in Premix Bag 1 BAG IVPB SCH (20:50)
[2020-11-02] MEDS: Cefepime 2 GM in Sodium Chloride 0.9% 100 ML IVPB SCH ×2 (03:55→16:30)
[2020-11-02 04:32] LABS: #Eosinphils 0.1 thou/uL (0.0-0.7); #Lymphocytes 1.2 thou/uL (1.20-3.40); #Monocytes 1.7 thou/uL (0.11-0.59); #Neutrophils 15.4 thou/uL (1.40-6.50); %Basophils 0.2 % (0.0-1.0); %Eosinophils 0.5 % (0.0-10.0); %Lymphocytes 6.6 % (21.0-51.0); %Monocytes 9.2 % (0.0-10.0); %Neutrophils 83.5 % (42.0-75.0); Mean Corpuscular HGB CONC 33.5 g/dL (32.0-36.0); Mean Corpuscular Hemoglobin 27.7 pg (27.0-31.0); Mean Corpuscular Volume 82.6 fL (78.0-98.0); Mean Platelet Volume 7.5 fL (7.4-10.4); Platelet Count 186 thou/uL (130-400); RBC Distribution Width 13.3 % (11.5-14.5); White Blood Cell (WBC) Count 18.5 thou/uL (4.8-10.8)
[2020-11-02 04:48] LABS: Anion Gap 12 mmol/L (10-20); BUN (Urea Nitrogen) 10 mg/dL (8.4-25.7); Calc. Creatinine Clearance 119 mL/min (70-130); Calcium 8.5 mg/dL (7.8-10.44); Carbon Dioxide 21 mmol/L (23-31); Chloride 102 mmol/L (98-107); Glucose 183 mg/dL (80-115); Potassium 3.8 mmol/L (3.5-5.1); Sodium 131 mmol/L (136-145)
[2020-11-02] MEDS: HumaLOG 300 UNITS/3 ML VIAL SC PRN ×2 (06:28→16:32)
[2020-11-02] MEDS ORDERED: Lorazepam 2 MG/ML VIAL SLOW IVP PRN (07:26)
[2020-11-02] MEDS: BEER 1 CAN PO SCH ×3 (09:36→16:05)
[2020-11-02] MEDS: Thiamine 100 MG TAB PO SCH (09:37)
[2020-11-02] MEDS: Carvedilol 6.25 MG TAB PO SCH ×2 (09:37→16:31)
[2020-11-02] MEDS: Aspirin 81 mg Enteric Coated Tablet PO SCH (09:37)
[2020-11-02] MEDS: VANCOMYCIN 1.25 GM/250 ML BAG 1.25 GM in Premix Bag 1 BAG IVPB SCH (09:37)
[2020-11-02] MEDS: Magnesium Oxide 400 MG TAB PO SCH (09:37)
[2020-11-02] MEDS: Enoxaparin Sodium 40 MG/0.4 ML SYRINGE SC SCH (09:37)
[2020-11-02] MEDS: Folic Acid 1 MG TAB PO SCH (09:37)
[2020-11-02] MEDS: Multivitamin W/ Minerals 1 TAB PO SCH (09:37)
[2020-11-02] MEDS: Lantus 1000 UNITS/10 ML VIAL SC SCH ×2 (09:37→21:09)
[2020-11-02] MEDS: HYDROcodone/Acetaminophen 5/325 mg Tablet PO PRN (16:31)
[2020-11-02] MEDS: Vancomycin 1.5 GRAM/300 ML BAG 1.5 GM in Premix Bag 1 BAG IVPB SCH (20:25)
[2020-11-02] MEDS: ALPRAZolam 0.25 MG TAB PO SCH (20:25)
[2020-11-02 22:30] LABS: SARS-CoV-2 PCR by NAA Not Detected (NotDetected)
[2020-11-03] MEDS: HYDROcodone/Acetaminophen 5/325 mg Tablet PO PRN ×2 (01:54→19:13)
[2020-11-03] MEDS: Cefepime 2 GM in Sodium Chloride 0.9% 100 ML IVPB SCH ×2 (03:07→17:17)
[2020-11-03 04:25] LABS: #Basophils 0.1 thou/uL (0.0-0.2); #Eosinphils 0.2 thou/uL (0.0-0.7); #Lymphocytes 0.8 thou/uL (1.20-3.40); #Monocytes 1.2 thou/uL (0.11-0.59); #Neutrophils 13.3 thou/uL (1.40-6.50); %Basophils 0.3 % (0.0-1.0); %Eosinophils 1.5 % (0.0-10.0); %Monocytes 7.8 % (0.0-10.0); %Neutrophils 85.3 % (42.0-75.0); Hemoglobin 12.7 g/dL (14.0-18.0); Mean Corpuscular HGB CONC 32.3 g/dL (32.0-36.0); Mean Corpuscular Hemoglobin 26.9 pg (27.0-31.0); Mean Corpuscular Volume 83.4 fL (78.0-98.0); Mean Platelet Volume 7.6 fL (7.4-10.4); Platelet Count 174 thou/uL (130-400); RBC Distribution Width 13.1 % (11.5-14.5); White Blood Cell (WBC) Count 15.6 thou/uL (4.8-10.8)
[2020-11-03 04:45] LABS: Anion Gap 10 mmol/L (10-20); BUN (Urea Nitrogen) 13 mg/dL (8.4-25.7); Calc. Creatinine Clearance 138 mL/min (70-130); Calcium 8.5 mg/dL (7.8-10.44); Carbon Dioxide 22 mmol/L (23-31); Chloride 104 mmol/L (98-107); Glucose 167 mg/dL (80-115); Potassium 3.6 mmol/L (3.5-5.1); Sodium 132 mmol/L (136-145)
[2020-11-03] MEDS: HumaLOG 300 UNITS/3 ML VIAL SC PRN (06:13)
[2020-11-03] MEDS: BEER 1 CAN PO SCH ×3 (08:28→17:18)
[2020-11-03] MEDS: Carvedilol 6.25 MG TAB PO SCH ×2 (08:28→17:19)
[2020-11-03] MEDS: Vancomycin 1.5 GRAM/300 ML BAG 1.5 GM in Premix Bag 1 BAG IVPB SCH ×2 (08:29→20:22)
[2020-11-03] MEDS: ALPRAZolam 0.25 MG TAB PO SCH ×2 (08:29→20:22)
[2020-11-03] MEDS: Folic Acid 1 MG TAB PO SCH (08:29)
[2020-11-03] MEDS: Magnesium Oxide 400 MG TAB PO SCH (08:30)
[2020-11-03] MEDS: Thiamine 100 MG TAB PO SCH (08:30)
[2020-11-03] MEDS: Multivitamin W/ Minerals 1 TAB PO SCH (08:30)
[2020-11-03] MEDS ORDERED: Fentanyl 100 MCG/2 ML VIAL ONE (12:32)
[2020-11-03] MEDS ORDERED: Ondansetron PF 4 MG/2 ML Vial ONE (12:54)
[2020-11-03] MEDS ORDERED: Lidocaine 1% (PF) 30 ML VIAL ONE (13:04)
[2020-11-03] MEDS: Aspirin 81 mg Enteric Coated Tablet PO SCH (14:17)
[2020-11-03] MEDS: Enoxaparin Sodium 40 MG/0.4 ML SYRINGE SC SCH (14:17)
[2020-11-03] MEDS: Lantus 1000 UNITS/10 ML VIAL SC SCH ×2 (14:18→20:33)
[2020-11-04] MEDS: HYDROcodone/Acetaminophen 5/325 mg Tablet PO PRN ×3 (02:52→21:22)
[2020-11-04] MEDS: Cefepime 2 GM in Sodium Chloride 0.9% 100 ML IVPB SCH ×2 (02:53→15:17)
[2020-11-04] MEDS: Vancomycin 1.5 GRAM/300 ML BAG 1.5 GM in Premix Bag 1 BAG IVPB SCH (08:35)
[2020-11-04] MEDS: BEER 1 CAN PO SCH ×3 (08:35→15:22)
[2020-11-04] MEDS: Vancomycin HCl 1.5 GM in Sodium Chloride 0.9% 250 ML 300 ML IVPB SCH ×2 (08:36→22:57)
[2020-11-04] MEDS: Enoxaparin Sodium 40 MG/0.4 ML SYRINGE SC SCH (08:37)
[2020-11-04] MEDS: Carvedilol 6.25 MG TAB PO SCH ×2 (08:37→16:45)
[2020-11-04] MEDS: ALPRAZolam 0.25 MG TAB PO SCH ×2 (08:37→21:21)
[2020-11-04] MEDS: Aspirin 81 mg Enteric Coated Tablet PO SCH (08:37)
[2020-11-04] MEDS: Thiamine 100 MG TAB PO SCH (08:38)
[2020-11-04] MEDS: Magnesium Oxide 400 MG TAB PO SCH (08:38)
[2020-11-04] MEDS: Folic Acid 1 MG TAB PO SCH (08:38)
[2020-11-04] MEDS: Multivitamin W/ Minerals 1 TAB PO SCH (08:38)
[2020-11-04] MEDS: Lantus 1000 UNITS/10 ML VIAL SC SCH ×2 (08:41→21:21)
[2020-11-04] MEDS: HumaLOG 300 UNITS/3 ML VIAL SC PRN ×2 (11:43→16:48)
[2020-11-04 22:15] LABS: Vancomycin, Trough 7.9 ug/mL
[2020-11-04] MEDS: VANCOMYCIN 1.75 GM/350 ML BAG 1.75 GM in Premix Bag 1 BAG IVPB SCH (23:30)
[2020-11-05] MEDS: Cefepime 2 GM in Sodium Chloride 0.9% 100 ML IVPB SCH ×2 (03:59→17:25)
[2020-11-05] MEDS: HYDROcodone/Acetaminophen 5/325 mg Tablet PO PRN ×4 (03:59→22:13)
[2020-11-05] MEDS: HumaLOG 300 UNITS/3 ML VIAL SC PRN (06:26)
[2020-11-05 09:18] LABS: #Basophils 0.1 thou/uL (0.0-0.2); #Eosinphils 0.3 thou/uL (0.0-0.7); #Monocytes 1.1 thou/uL (0.11-0.59); #Neutrophils 7.5 thou/uL (1.40-6.50); %Basophils 0.5 % (0.0-1.0); %Eosinophils 3.4 % (0.0-10.0); %Lymphocytes 9.5 % (21.0-51.0); %Monocytes 11.1 % (0.0-10.0); %Neutrophils 75.5 % (42.0-75.0); Hemoglobin 13.1 g/dL (14.0-18.0); Mean Corpuscular HGB CONC 32.6 g/dL (32.0-36.0); Mean Corpuscular Hemoglobin 27.2 pg (27.0-31.0); Mean Corpuscular Volume 83.2 fL (78.0-98.0); Mean Platelet Volume 7.6 fL (7.4-10.4); Platelet Count 209 thou/uL (130-400); RBC Distribution Width 13.1 % (11.5-14.5); Red Blood Cell (RBC) Count 4.82 mill/uL (4.70-6.10)
[2020-11-05 09:40] LABS: Anion Gap 13 mmol/L (10-20); BUN (Urea Nitrogen) 12 mg/dL (8.4-25.7); Calc. Creatinine Clearance 120 mL/min (70-130); Calcium 8.8 mg/dL (7.8-10.44); Carbon Dioxide 24 mmol/L (23-31); Chloride 103 mmol/L (98-107); Glucose 224 mg/dL (80-115); Potassium 3.5 mmol/L (3.5-5.1); Sodium 136 mmol/L (136-145)
[2020-11-05] MEDS: Multivitamin W/ Minerals 1 TAB PO SCH (09:44)
[2020-11-05] MEDS: Magnesium Oxide 400 MG TAB PO SCH (09:44)
[2020-11-05] MEDS: Folic Acid 1 MG TAB PO SCH (09:44)
[2020-11-05] MEDS: ALPRAZolam 0.25 MG TAB PO SCH ×2 (09:44→22:11)
[2020-11-05] MEDS: Enoxaparin Sodium 40 MG/0.4 ML SYRINGE SC SCH (09:45)
[2020-11-05] MEDS: Aspirin 81 mg Enteric Coated Tablet PO SCH (09:45)
[2020-11-05] MEDS: Carvedilol 6.25 MG TAB PO SCH ×2 (09:45→17:25)
[2020-11-05] MEDS: Thiamine 100 MG TAB PO SCH (09:45)
[2020-11-05] MEDS: Lantus 1000 UNITS/10 ML VIAL SC SCH ×2 (09:47→22:12)
[2020-11-05] MEDS: BEER 1 CAN PO SCH ×3 (09:47→17:25)
[2020-11-05] MEDS: VANCOMYCIN 1.75 GM/350 ML BAG 1.75 GM in Premix Bag 1 BAG IVPB SCH ×2 (11:30→22:12)
[2020-11-05] MEDS ORDERED: Atorvastatin Calcium 40 MG TAB PO SCH (21:00)
[2020-11-06] MEDS: HYDROcodone/Acetaminophen 5/325 mg Tablet PO PRN ×2 (04:07→09:32)
[2020-11-06] MEDS: Cefepime 2 GM in Sodium Chloride 0.9% 100 ML IVPB SCH (04:07)
[2020-11-06] MEDS: Folic Acid 1 MG TAB PO SCH (09:25)
[2020-11-06] MEDS: Multivitamin W/ Minerals 1 TAB PO SCH (09:25)
[2020-11-06] MEDS: ALPRAZolam 0.25 MG TAB PO SCH (09:25)
[2020-11-06] MEDS: Carvedilol 6.25 MG TAB PO SCH (09:25)
[2020-11-06] MEDS: Magnesium Oxide 400 MG TAB PO SCH (09:25)
[2020-11-06] MEDS: Aspirin 81 mg Enteric Coated Tablet PO SCH (09:25)
[2020-11-06] MEDS: Enoxaparin Sodium 40 MG/0.4 ML SYRINGE SC SCH (09:26)
[2020-11-06] MEDS: BEER 1 CAN PO SCH ×2 (09:26→11:53)
[2020-11-06] MEDS: Thiamine 100 MG TAB PO SCH (09:28)
[2020-11-06] MEDS: Lantus 1000 UNITS/10 ML VIAL SC SCH (09:30)
[2020-11-06 10:44] LABS: Vancomycin, Trough 12.7 ug/mL
[2020-11-06] MEDS ORDERED: Cephalexin 250 MG CAP PO SCH (12:00)
[2020-11-06 13:11] VITALS: BP 148/70; TEMP 98
== END 2020-11-06 13:30 | disposition home health service (06) | DRG 862 ==
LOC: ERS 02:00 → 2NO 04:39
PROVIDERS: ADMIT Student in an Organized Health Care Education/Training Program; ATTEND Internal Medicine
PROC: 069 Lower Veins, Drainage (ICD-10-PCS; principal; 2020-11-03)
DX: T81.40XA Infection following a procedure, unspecified, initial encounter (principal); A41.01 Sepsis due to Methicillin susceptible Staphylococcus aureus; L03.116 Cellulitis of left lower limb; L02.416 Cutaneous abscess of left lower limb; E87.1 Hypo-osmolality and hyponatremia; Z20.822 Contact with and (suspected) exposure to COVID-19; Y83.8 Other surgical procedures as the cause of abnormal reaction of the patient, or of later complication, without mention of misadventure at the time of the procedure; E78.00 Pure hypercholesterolemia, unspecified; E11.65 Type 2 diabetes mellitus with hyperglycemia; I10 Essential (primary) hypertension; F41.9 Anxiety disorder, unspecified; E78.2 Mixed hyperlipidemia; Z85.038 Personal history of other malignant neoplasm of large intestine; Z92.21 Personal history of antineoplastic chemotherapy; Z90.49 Acquired absence of other specified parts of digestive tract; Z95.1 Presence of aortocoronary bypass graft; Z87.891 Personal history of nicotine dependence; Z78.9 Other specified health status; Z79.82 Long term (current) use of aspirin; Z79.84 Long term (current) use of oral hypoglycemic drugs; Z79.899 Other long term (current) drug therapy
CPT/HCPCS: 36415; 36416; 71046; 80048; 80053; 80202; 81003; 83605; 83735; 84145; 85025; 87040; 87070; 87077; 87186; 87205; 87635; 93005; 96365; 96367; 96375; J0692; J1650; J1815; J2001; J2270; J2405; J3010; J3370; J3411; J3475; J3490; J7050; U0003; U0005